=== PATIENT | male | born 1955 | race African-American/Black ===

== ENCOUNTER 2024-12-15 09:29 | Outpatient (CLI) | payer MEDICARE, SELFPAY ==
--- NOTE | ~2024-12-15 | MR_ITS ---
MRI of the left foot CLINICAL HISTORY: Osteomyelitis TECHNIQUE: Sagittal T1-weighted and STIR images, axial proton-density fat-sat images, and coronal T1- weighted and proton-density fat-sat images were performed. FINDINGS: Bone marrow signals are unremarkable. No marrow edema or fracture seen. No evidence for ost eitis. Joint spaces are intact, without erosive change or significant joint effusion. There is minima l degenerative change of the first MTP joint. Flexor and extensor tendons are intact. There is dorsal subcutaneous soft tissue edema. No focal flui d collection/abscess identified. Possible minimal intermetatarsal bursitis at the second interspace. No evidence for Peterson's neuroma. Visualized plantar fascia intact. There is minimal nonspecific norris phous edema of the plantar musculature of the foot. IMPRESSION: No evidence for osteomyelitis or abscess. Minimal intermetatarsal bursitis of the second interspace. Minimal amorphous edema of the plantar musculature of the foot, nonspecific. This can be seen in the setting of diabetic foot.. Reviewed, dictated and finalized at [facility]. IMPRESSION: No evidence for osteomyelitis or abscess. Minimal intermetatarsal bursitis of the second interspace. Minimal amorphous edema of the plantar musculature of the foot, nonspecific. Th is can be seen in the setting of diabetic foot..
== END 2024-12-15 09:30 | disposition home or self-care (01) ==
LOC: GOSHIMG 09:29
DX: M86.9 Osteomyelitis, unspecified (principal); R60.9 Edema, unspecified
CPT/HCPCS: 73718